=== PATIENT | male | born 1940 | race Caucasian/White ===

== ENCOUNTER 2018-06-27 17:08 | Emergency (ER) | payer MEDICARE, OTHER ==
--- NOTE | 2018-06-27 19:07 | UC ---
Lower Extremity/Ankle HPI - HPI Summary HPI Summary: 77 y/o male presents to the urgent care c/o hRight great toe injury, marcelo luo fell on it tis am. - History of Current Complaint Chief Complaint: UCLowerExtremity Stated Complaint: RT FOOT INJURY Time Seen by Provider: 06/27/18 19:02 Hx Obtained From: Patient Pain Intensity: 7 - Allergies/Home Medications Allergies/Adverse Reactions: Allergies Allergy/AdvReac Type Severity Reaction Status Date / Time No Known Allergies Allergy Verified 06/27/18 17:31 PMH/Surg Hx/FS Hx/Imm Hx - Surgical History Surgical History: Yes Surgery Procedure, Year, and Place: PROSTATE REMOVAL - Social History Alcohol Use: None Substance Use Type: None Smoking Status (MU): Never Smoked Tobacco Physical Exam Vital Signs: Initial Vital Signs Temp 98.9 F 06/27/18 17:26 Pulse 78 06/27/18 17:26 Resp 16 06/27/18 17:26 BP 173/85 06/27/18 17:26 Pulse Ox 98 06/27/18 17:26 Lower Extremity Course/Dx - Differential Dx/Diagnosis Differential Diagnosis/HQI/PQRI: Dislocation, Fracture (Closed), Sprain, Strain , Tendonitis Provider Diagnosis: Right foot sprain, Elevated BP without diagnosis of hypertension Discharge - Sign-Out/Discharge Documenting (check all that apply): Patient Departure - d/C home All imaging exams completed and their final reports reviewed: Yes - Discharge Plan Condition: Stable Disposition: HOME Patient Education Materials: Foot Sprain (ED), Low-Sodium Diet (ED) Referrals: Joey King MD [Medical Doctor] - 1 Week Felix Robbins MD [Primary Care Provider] - 3 Days Additional Instructions: 1-Please take Tylenol PO q6-8hrs medications as directed to alleviate pain and swelling. 2-Please apply ice, keep your foot immobilized with the Garrett bandage and wear the post up shoe to avoid flexion. Avoid strenuous exercise or standing for long periods of time, elevate your foot 3- Please f/u with your PCP or Orthopedic Dr King in 1 week if not improvement of symptoms for further evaluation and treatment. 4-Your BP is elevated today. Please take your BP medications and decrease salt in your diet, monitor BP and if it continues to be elevated please f/u with your PCP for further management. If you develop chest pain, dizziness, visual disturbances, SOB, or severe ANDERS please go immediately to the ER for further management - Billing Disposition and Condition Condition: STABLE Disposition: Home
[2018-06-27 19:33] VITALS: BP 170/87
== END 2018-06-27 19:48 | disposition home or self-care (01) ==
LOC: UCEAST 17:08
DX: S93.601A Unspecified sprain of right foot, initial encounter (principal); W20.8XXA Other cause of strike by thrown, projected or falling object, initial encounter; Y92.9 Unspecified place or not applicable; R03.0 Elevated blood-pressure reading, without diagnosis of hypertension
CPT/HCPCS: 99212; G0463